=== PATIENT | female | born 1945 | race Caucasian/White ===

== ENCOUNTER 2017-05-02 20:47 | Inpatient (IN) | payer MEDICARE ==
[~2017-05-02] VITALS: Ht 154.9 cm; Wt 67.9 kg
[2017-05-02 20:50] VITALS: BP 144/84; PULSE 82; RESP 16; TEMP 97.7; O2SAT 100
[2017-05-02 21:04] LABS: BASOPHIL # 0.1 TH/MM3 (0-0.2); BASOPHIL % 0.9 % (0.0-2.0); EOSINOPHIL # 0.1 TH/MM3 (0-0.4); EOSINOPHIL % 1.5 % (0.0-4.0); HEMATOCRIT 42.2 % (35.0-46.0); HEMOGLOBIN 14.1 GM/DL (11.6-15.3); LYMPHOCYTE # 2.9 TH/MM3 (1.0-4.8); MEAN CELL VOLUME 84.3 FL (80.0-100.0); MEAN CORPUSCULAR HEMOGLOBIN 28.3 PG (27.0-34.0); MEAN CORPUSCULAR HGB CONC 33.5 % (32.0-36.0); MEAN PLATELET VOLUME 7.2 FL (7.0-11.0); MONOCYTE # 0.4 TH/MM3 (0-0.9); NEUT % 62.6 % (16.0-70.0); PLATELET COUNT 403 TH/MM3 (150-450); RED BLOOD COUNT 5.01 MIL/MM3 (4.00-5.30); RED CELL DISTRIBUTION WIDTH 12.5 % (11.6-17.2); WHITE BLOOD COUNT 9.5 TH/MM3 (4.0-11.0)
[2017-05-02 21:13] LABS: CHLORIDE 103 MEQ/L (98-107); SODIUM (NA) 142 MEQ/L (136-145)
[2017-05-02 21:16] LABS: CALCIUM 9.7 MG/DL (8.5-10.1)
[2017-05-02 21:17] LABS: ALBUMIN 3.8 GM/DL (3.4-5.0); BICARBONATE 24.5 MEQ/L (21.0-32.0); BLOOD UREA NITROGEN 10 MG/DL (7-18); GLUCOSE,RANDOM 220 MG/DL (74-106)
[2017-05-02 21:20] LABS: ALT (GPT) 27 U/L (10-53); AST (GOT) 20 U/L (15-37); CREATININE 0.77 MG/DL (0.50-1.00); GLOMERULAR FILTRATION RATE 74 ML/MIN (>89)
[2017-05-02 21:22] LABS: TOTAL BILIRUBIN ADULT 0.4 MG/DL (0.2-1.0); TOTAL PROTEIN 7.7 GM/DL (6.4-8.2)
[2017-05-02 21:23] LABS: ALKALINE PHOSPHATASE 80 U/L (45-117)
[2017-05-02 21:25] LABS: TROPONIN I LESS THAN 0.02 NG/ML (0.02-0.05)
--- NOTE | 2017-05-02 21:50 | RADRPT ---
EXAM DATE/TIME: 05/02/2017 21:25 [facility] COMPARISON: No previous studies available for comparison. INDICATIONS : Trauma. Fall. RADIATION DOSE: 56.19 CTDIvol (mGy) MEDICAL HISTORY : Hypertension. Diabetes mellitus type 2. SURGICAL HISTORY : None. ENCOUNTER: Initial ACUITY: 1 day PAIN SCALE: 0/10 LOCATION: cranial TECHNIQUE: Multiple contiguous axial images were obtained of the head. Using automated exposure control and adj ustment of the mA and/or kV according to patient size, radiation dose was kept as low as reasonably a chievable to obtain optimal diagnostic quality images. DICOM format image data is available electro nically for review and comparison. FINDINGS: There are scattered areas of high attenuation involving the subarachnoid space overlying right fronta l lobe, right parietal lobe, and left parietal lobe consistent with subarachnoid hemorrhage. Atrophy. Periventricular low attenuation change. Calcifications associated with the basal ganglia on the left . No acute infarction. Ventricles are prominent. No hydrocephaly. The calvarium is intact. CONCLUSION: 1. Acute subarachnoid hemorrhage bilaterally. 2. Atrophy. 3. Chronic small vessel ischemic change. Juanjose Harris Jr., MD on May 02, 2017 at 21:45 Board Certified Radiologist. This report was verified electronically.
[2017-05-02] MEDS ORDERED: ONDANSETRON HCL 4 MG/2 ML VIAL IV PUSH ONE (22:00)
--- NOTE | 2017-05-02 22:09 | RADRPT ---
EXAM DATE/TIME: 05/02/2017 21:25 [facility] COMPARISON: No previous studies available for comparison. INDICATIONS : Trauma. Fall. RADIATION DOSE: 26.43 CTDIvol (mGy) MEDICAL HISTORY : Hypertension. Diabetes mellitus type 2. SURGICAL HISTORY : None. ENCOUNTER: Initial ACUITY: 1 day PAIN SCALE: 0/10 LOCATION: neck TECHNIQUE: Volumetric scanning of the cervical spine was performed. Multiplanar reconstructions in the sagittal, coronal and oblique axial planes were performed. Using automated exposure control and adjustment o f the mA and/or kV according to patient size, radiation dose was kept as low as reasonably achievable to obtain optimal diagnostic quality images. DICOM format image data is available electronically f or review and comparison. FINDINGS: VERTEBRAE: Normal vertebral body height. ALIGNMENT: No evidence of subluxation. C2-C3: The bony spinal canal is normal in size. No evidence of disc bulge or herniation. The neural forami na are bilaterally patent. C3-C4: The bony spinal canal is normal in size. No evidence of disc bulge or herniation. The neural forami na are bilaterally patent. C4-C5: The bony spinal canal is normal in size. No evidence of disc bulge or herniation. The neural forami na are bilaterally patent. C5-C6: There is disc space narrowing with a mild broad-based disc osteophyte complex. Central canal remains patent. Bony uncovertebral hypertrophy generates bilateral moderate neural foraminal narrowing. C6-C7: The bony spinal canal is normal in size. No evidence of disc bulge or herniation. The neural forami na are bilaterally patent. C7-T1: The bony spinal canal is normal in size. No evidence of disc bulge or herniation. The neural forami na are bilaterally patent. CONCLUSION: 1. No fracture or dislocation. 2. Degenerative changes. Juanjose Harris Jr., MD on May 02, 2017 at 21:57 Board Certified Radiologist. This report was verified electronically.
--- NOTE | 2017-05-02 22:09 | PD ---
HPI Chief Complaint: Syncope/Near-Syncope Time Seen by Provider: 20:51 Travel History International Travel<30 days: No Contact w/Intl Traveler<30days: No Traveled to known affect area: No History of Present Illness HPI patient is a 72-year-old female who was attending a wedding today had moderate amount to drink, according to her she be complaining of some nausea and then went up to go to the bathroom, she apparently either had a syncopal event or a trip and fall and landed on her face. The patient's inability altered on arrival can tell me her name but repeats "I don't know" fairly frequently. When asked for her date of she is unable to give me her date of . Patient is not on any blood thinners, does have a history of diabetes and her blood sugar was 200 in the field. Significant confused for EMS and bystanders she is placed in full spinal package and brought to the emergency department. History fairly limited by the patient's altered mental status. PFSH Past Medical History Diabetes: Yes Patient Takes Glucophage: Yes Hypertension: Yes Tetanus Vaccination: Unknown ?: Not Social History Alcohol Use: Yes Tobacco Use: No Substance Use: No Allergies-Medications (Allergen,Severity, Reaction): Coded Allergies: No Known Allergies (Unverified , 05/02/17) Reported Meds & Prescriptions Reported Meds & Active Scripts Active Reported Pravastatin 10 Mg Tab 10 Mg PO DAILY Lisinopril 10 Mg Tab 10 Mg PO DAILY Metformin (Metformin HCl) 500 Mg Tab 500 Mg PO BIDPC Review of Systems ROS Limitations: Altered Mental Status Physical Exam Narrative GENERAL: Well-developed well-nourished, there is contusion and mild periorbital edema on the right. Patient fairly confused. SKIN: Focused skin assessment warm/dry. HEAD: No ramirez signs, there is contusion and periorbital edema on the right.. Normocephalic. EYES: Pupils equal and round. No scleral icterus. No injection or drainage. ENT: No nasal bleeding or discharge. Mucous membranes pink and moist. NECK: Trachea midline. No JVD. CARDIOVASCULAR: Regular rate and rhythm. No murmur appreciated. RESPIRATORY: No accessory muscle use. Clear to auscultation. Breath sounds equal bilaterally. GASTROINTESTINAL: Abdomen soft, non-tender, nondistended. Hepatic and splenic margins not palpable. MUSCULOSKELETAL: No obvious deformities. No clubbing. No cyanosis. No edema. Extremities appear atraumatic, no midline CT or L-spine tenderness. No bruising on her posterior. NEUROLOGICAL: Awake and alert confused oriented to self only. GCS of 14. Able to follow commands in all 4 extremities, 5 out of 5 strength in all 4 extremity' s. Cranial nerves II through XII are grossly intact and nonfocal, extra ocular movements intact, pupils PERRLA. PSYCHIATRIC: Unable to assess secondary to altered mental status Data Data Last Documented VS Vital Signs Date Time Temp Pulse Resp B/P (MAP) Pulse Ox O2 Delivery O2 Flow Rate FiO2 05/02/17 22:13 96 16 156/85 (108) 100 Room Air 05/02/17 20:50 97.7 Orders Orders Electrocardiogram (05/02/17 20:51) Complete Blood Count With Diff (05/02/17 20:51) Comprehensive Metabolic Panel (05/02/17 20:51) Prothrombin Time / Inr (Pt) (05/02/17 20:51) Act Partial Throm Time (Ptt) (05/02/17 20:51) Troponin I (05/02/17 20:51) Blood Glucose (05/02/17 20:51) Ecg Monitoring (05/02/17 20:51) Iv Access Insert/Monitor (05/02/17 20:51) Oximetry (05/02/17 20:51) Alcohol (Ethanol) (05/02/17 20:51) Ct Brain W/O Iv Contrast(Rout) (05/02/17 ) Ct Cerv Spine W/O Contrast (05/02/17 ) Ct Facial Bones W/O Iv Cont (05/02/17 ) Ondansetron Inj (Zofran Inj) (05/02/17 22:00) Elevate Head Of Bed (05/02/17 21:48) Activity Bed Rest (05/02/17 22:03) Consult Neurosurgery (05/02/17 ) Admit Order (Ed Use Only) (05/02/17 ) Potassium Chlor 10 Meq Premix (Kcl 10 Me (05/02/17 22:45) Labs Laboratory Tests Test 05/02/17 21:00 White Blood Count 9.5 TH/MM3 Red Blood Count 5.01 MIL/MM3 Hemoglobin 14.1 GM/DL Hematocrit 42.2 % Mean Corpuscular Volume 84.3 FL Mean Corpuscular Hemoglobin 28.3 PG Mean Corpuscular Hemoglobin Concent 33.5 % Red Cell Distribution Width 12.5 % Platelet Count 403 TH/MM3 Mean Platelet Volume 7.2 FL Neutrophils (%) (Auto) 62.6 % Lymphocytes (%) (Auto) 31.0 % Monocytes (%) (Auto) 4.0 % Eosinophils (%) (Auto) 1.5 % Basophils (%) (Auto) 0.9 % Neutrophils # (Auto) 6.0 TH/MM3 Lymphocytes # (Auto) 2.9 TH/MM3 Monocytes # (Auto) 0.4 TH/MM3 Eosinophils # (Auto) 0.1 TH/MM3 Basophils # (Auto) 0.1 TH/MM3 CBC Comment DIFF FINAL Differential Comment Prothrombin Time 10.0 SEC Prothromb Time International Ratio 1.0 RATIO Activated Partial Thromboplast Time 18.6 SEC Blood Urea Nitrogen 10 MG/DL Creatinine 0.77 MG/DL Random Glucose 220 MG/DL Total Protein 7.7 GM/DL Albumin 3.8 GM/DL Calcium Level 9.7 MG/DL Alkaline Phosphatase 80 U/L Aspartate Amino Transf (AST/SGOT) 20 U/L Alanine Aminotransferase (ALT/SGPT) 27 U/L Total Bilirubin 0.4 MG/DL Sodium Level 142 MEQ/L Potassium Level 3.4 MEQ/L Chloride Level 103 MEQ/L Carbon Dioxide Level 24.5 MEQ/L Anion Gap 15 MEQ/L Estimat Glomerular Filtration Rate 74 ML/MIN Troponin I LESS THAN 0.02 NG/ML Ethyl Alcohol Level 29 MG/DL MDM Medical Decision Making Medical Screen Exam Complete: Yes Emergency Medical Condition: Yes Differential Diagnosis Concussion, intoxication, intracranial hemorrhage, skull fracture, neck fracture , facial fracture. Narrative Course Patient roomed emergency department, taken hastily do CAT scan which showed bilateral small subarachnoid hemorrhages. Mental status slowly improving in emerged permit, blood pressure 140s over 80s. She is not on it and quite plans. She was discussed with Dr. Pb Gifford, no further recommendations except for elevated head of bed at this time. Will be transferred to the main [facility] for intensive surgical ICU care. Patient's at the bedside was updated, he is also asked me to update patient's daughter by phone who formally was a nurse at [facility]. 's unclear whether this patient had subarachnoid hemorrhage prior to fall or excuse because by the fall. This may be a coup contrecoup injury. Critical Care Narrative Aggregate critical care time was 35 minutes. Time to perform other separately billable procedures was not included in the critical care time. My time did not include minutes spent treating any other patients simultaneously or on activities that did not directly contribute to the patient's treatment. The services I provided to this patient were to treat and/or prevent clinically significant deterioration that could result in: , disability, organ failure I provided critical care services requiring my management, as noted below: Chart data review, documentation time, medication orders and management, vital sign assessments/reviewing monitor data, ordering and reviewing lab tests, ordering and interpreting/reviewing x-rays and diagnostic studies, care of the patient and discussion of the patient with the admitting physicians. Diagnosis Primary Impression: Subarachnoid hemorrhage Additional Impression: Syncope and collapse Admitting Information Admitting Physician Requests: Admit Condition: Serious Nahum Wall MD May 02, 2017 22:09
--- NOTE | 2017-05-02 22:12 | RADRPT ---
EXAM DATE/TIME: 05/02/2017 21:25 [facility] COMPARISON: No previous studies available for comparison. INDICATIONS : Trauma. Fall. RADIATION DOSE: 25.33 CTDIvol (mGy) MEDICAL HISTORY : Hypertension. Diabetes mellitus type 2. SURGICAL HISTORY : None. ENCOUNTER: Initial ACUITY: 1 day PAIN SCORE: 0/10 LOCATION: facial TECHNIQUE: Volumetric scanning of the facial bones was performed. Using automated exposure control and adjustme nt of the mA and/or kV according to patient size, radiation dose was kept as low as reasonably achiev able to obtain optimal diagnostic quality images. DICOM format image data is available [employer] y for review and comparison. FINDINGS: There is an acute nondisplaced fracture involving the right nasion. Soft tissue swelling overlies the right maxilla. The acute fracture is also seen involving the floor of the right orbit. No entrapment of the inferior rectus muscle observed. A small amount of fluid seen within the right maxillary sinu s. The orbital rim is intact. Remaining bony structures are unremarkable. Nasal septum within the mid line. CONCLUSION: 1. Acute right nasal bone fracture and right orbital floor fracture without entrapment of the inferio r rectus muscle. Juanjose Harris Jr., MD on May 02, 2017 at 22:06 Board Certified Radiologist. This report was verified electronically.
[2017-05-02 22:13] VITALS: BP 156/85; PULSE 96; RESP 16; O2SAT 100
[2017-05-02] MEDS ORDERED: METF500T PO (22:55)
[2017-05-02 23:05] VITALS: BP 142/76; PULSE 92; RESP 16; O2SAT 99
[2017-05-02] MEDS: POTASSIUM CHLOR 10 MEQ PREMIX 100 ML IV SCH (23:33)
[2017-05-02] MEDS ORDERED: PRAV10TA PO (23:40)
[2017-05-02] MEDS ORDERED: LISI10TA3 PO (23:40)
[2017-05-02 23:42] VITALS: BP 145/72; PULSE 97; RESP 16; O2SAT 100
[2017-05-03] VITALS (14 sets, daily range): BP systolic 128–158; BP diastolic 60–80; PULSE 68–105; RESP 16–26; TEMP 97.9–99.3; O2SAT 95–100
[2017-05-03] MEDS: POTASSIUM CHLOR 10 MEQ PREMIX 100 ML IV SCH (01:06)
[2017-05-03] MEDS: LABETALOL HCL 100 MG/20 ML VIAL IV PUSH PRN (01:10)
[2017-05-03] MEDS ORDERED: RESP: ALBUTEROL 2.5 MG/3 ML NEB (PRN) INH (02:45)
[2017-05-03] MEDS ORDERED: MAGNESIUM HYDROXIDE SUSP 30 ML CUP PO PRN (02:45)
[2017-05-03] MEDS ORDERED: SENNOSIDES 8.6 MG TAB PO PRN (02:45)
[2017-05-03] MEDS ORDERED: CHLORHEXIDINE GLUCONATE 2 % 1 PACK (2 CLOTHS) TOP PRN (02:45)
[2017-05-03] MEDS ORDERED: LACTULOSE SYRUP 20 GM/30 ML CUP PO PRN (02:45)
[2017-05-03] MEDS ORDERED: ONDANSETRON HCL 4 MG/2 ML VIAL IV PUSH PRN (02:45)
[2017-05-03] MEDS ORDERED: SODIUM CHLORIDE 0.9% FLUSH 10 ML FLUSH IV FLUSH PRN (02:45)
[2017-05-03] MEDS ORDERED: MISCELLANEOUS NURSING INFORMATION XX SCH (02:45)
[2017-05-03] MEDS ORDERED: BISACODYL 10 MG SUPP RECTAL PRN (02:45)
--- NOTE | 2017-05-03 03:07 | HHI.HP ---
HPI Service Critical Care Medicine Primary Care Physician Amy Roca MD Admission Diagnosis Subarachnoid hemorrhage, Syncope Diagnosis: Travel History International Travel<30 Days: No Contact w/Intl Traveler <30 Da: No Traveled to Known Affected Are: No History of Present Illness 72-year-old female with past medical history of hypertension, diabetes, hyperlipidemia, obesity who presents to [facility] emergency department after LOC. She states she had attended a wedding and had eaten and drank one alcoholic beverage. She became very nauseous and her assisted her to going to the bathroom. She then had a syncopal event. She states she struck her face on the floor. She denies chest pain, shortness of breath, palpitations, diaphoresis, headache, neck pain, loss of bowel or bladder function, tongue biting. There was no seizure activity noted. She denies prior history of syncope. She denies prior cardiac history and states she has never had a cardiac workup in the past. No family history of sudden cardiac . CT brain demonstrates scattered subarachnoid hemorrhage, bifrontal and biparietal. She states that she has some tenderness around her right eye where she has periorbital ecchymoses but otherwise denies any pain or symptoms. Denies diplopia or visual changes. CT C-spine was also performed and was negative for acute fracture/subluxation. CT maxillofacial shows fracture of nasal bone and the floor of the right orbital floor without radiographic (or clinical) evidence of entrapment. She has not been on antiplatelet or anticoagulant. Review of Systems Constitutional: DENIES: Diaphoretic episodes, Fever Cardiovascular: DENIES: Chest pain Gastrointestinal: DENIES: Abdominal pain Neurologic: DENIES: Headache, Seizures, Speech Problems, Poor Balance Psychiatric: DENIES: Confusion Past Family Social History Allergies: Coded Allergies: No Known Allergies (Unverified , 05/02/17) Past Medical History She has a fine needle aspirate of a breast lesion with malignant cells. She underwent lumpectomy that reportedly had benign pathology. She had no radiation or chemotherapy Diabetes Hypertension Hyperlipidemia Past Surgical History Breast lumpectomy Reported Medications Pravastatin 10 mg by mouth daily Lisinopril 10 g by mouth daily Metformin 500 mg by mouth twice a day Family History No family history of sudden cardiac , coronary artery disease, cerebral aneurysm Father at the [facility] in his early 60s Mother at age 89 from sepsis. Social History Lifetime nonsmoker Occasionally drinks alcohol socially No drug use Lives in [facility] Physical Exam Vital Signs Vital Signs Date Time Temp Pulse Resp B/P (MAP) Pulse Ox O2 Delivery O2 Flow Rate FiO2 05/03/17 00:20 99.2 105 19 143/77 (99) 98 05/03/17 00:00 105 05/02/17 23:56 05/02/17 23:42 97 16 145/72 (96) 100 Room Air 05/02/17 23:05 92 16 142/76 (98) 99 Room Air 05/02/17 22:13 96 16 156/85 (108) 100 Room Air 05/02/17 21:00 16 100 05/02/17 20:50 97.7 82 16 144/84 (104) 100 Physical Exam GENERAL: Well-nourished, well-developed patient who is laying in ISC bed. SKIN: Warm and dry. Right periorbital ecchymosis with tenderness HEAD: Normocephalic. EYES: Pupils equal and round, 3 mm reactive to 2 mm bilaterally.. No scleral icterus. Mild right conjunctival injection. Extraocular movements are full including upward gaze with no evidence of inferior rectus entrapment. ENT: No nasal bleeding or discharge. Mucous membranes pink and moist. NECK: Trachea midline. No JVD. CARDIOVASCULAR: Regular rate and rhythm. 2/6 systolic murmur LLSB RESPIRATORY: No accessory muscle use. Clear to auscultation. Breath sounds equal bilaterally. On RA. GASTROINTESTINAL: Abdomen soft, non-tender, nondistended. Bowel sounds present. MUSCULOSKELETAL: Extremities without clubbing, cyanosis, or edema. No obvious deformities. NEUROLOGICAL: Awake and alert. No obvious cranial nerve deficits. Pupils reactive. Extra ocular movements intact. No pronator drift. Five out of 5 muscle strength in the arms and legs. Normal speech. Sensation intact. Laboratory Laboratory Tests Test 05/02/17 21:00 05/03/17 01:00 White Blood Count 9.5 Red Blood Count 5.01 Hemoglobin 14.1 Hematocrit 42.2 Mean Corpuscular Volume 84.3 Mean Corpuscular Hemoglobin 28.3 Mean Corpuscular Hemoglobin Concent 33.5 Red Cell Distribution Width 12.5 Platelet Count 403 Mean Platelet Volume 7.2 Neutrophils (%) (Auto) 62.6 Lymphocytes (%) (Auto) 31.0 Monocytes (%) (Auto) 4.0 Eosinophils (%) (Auto) 1.5 Basophils (%) (Auto) 0.9 Neutrophils # (Auto) 6.0 Lymphocytes # (Auto) 2.9 Monocytes # (Auto) 0.4 Eosinophils # (Auto) 0.1 Basophils # (Auto) 0.1 CBC Comment DIFF FINAL Differential Comment Prothrombin Time 10.0 Prothromb Time International Ratio 1.0 Activated Partial Thromboplast Time 18.6 Blood Urea Nitrogen 10 Creatinine 0.77 Random Glucose 220 Total Protein 7.7 Albumin 3.8 Calcium Level 9.7 Alkaline Phosphatase 80 Aspartate Amino Transf (AST/SGOT) 20 Alanine Aminotransferase (ALT/SGPT) 27 Total Bilirubin 0.4 Sodium Level 142 Potassium Level 3.4 Chloride Level 103 Carbon Dioxide Level 24.5 Anion Gap 15 Estimat Glomerular Filtration Rate 74 Troponin I LESS THAN 0.02 Ethyl Alcohol Level 29 Result Diagram: 05/02/17209905/02/172099 [place] VTE Risk Assessment [place] VTE Risk Assessment: Mod/High Risk (score >= 2) VTE Pharm Contraindication: Intracranial lesions Caprini Risk Assessment Model Point Value = 1 Point Value = 2 Point Value = 3 Point Value = 5 Age 41-60 Minor surgery BMI > 25 kg/m2 Swollen legs Varicose veins or History of unexplained or recurrent spontaneous Oral contraceptives or hormone replacement Sepsis (< 1 month) Serious lung disease, including pneumonia (< 1 month) Abnormal pulmonary function Acute myocardial infarction Congestive heart failure (< 1 month) History of inflammatory bowel disease Medical patient at bed rest Age 61-74 Arthroscopic surgery Major open surgery (> 45 min) Laparoscopic surgery (> 45 min) Malignancy Confined to bed (> 72 hours) Immobilizing plaster cast Central venous access Age >= 75 History of VTE Family history of VTE Factor V Leiden Prothrombin [id number] Lupus anticoagulant Anticardiolipin antibodies Elevated serum homocysteine Heparin-induced thrombocytopenia Other congenital or acquired thrombophilia Stroke (< 1 month) Elective arthroplasty Hip, pelvis, or leg fracture Acute spinal cord injury (< 1 month) Prophylaxis Regimen Total Risk Factor Score Risk Level Prophylaxis Regimen 0-1 Low Early ambulation 2 Moderate Order ONE of the following: *Sequential Compression Device (SCD) *Heparin 5000 units SQ BID 3-4 Higher Order ONE of the following medications: *Heparin 5000 units SQ TID *Enoxaparin/Lovenox 40 mg SQ daily (WT < 150 kg, CrCl > 30 mL/min) *Enoxaparin/Lovenox 30 mg SQ daily (WT < 150 kg, CrCl > 10-29 mL/min) *Enoxaparin/Lovenox 30 mg SQ BID (WT < 150 kg, CrCl > 30 mL/min) AND/OR *Sequential Compression Device (SCD) 5 or more Highest Order ONE of the following medications: *Heparin 5000 units SQ TID (Preferred with Epidurals) *Enoxaparin/Lovenox 40 mg SQ daily (WT < 150 kg, CrCl > 30 mL/min) *Enoxaparin/Lovenox 30 mg SQ daily (WT < 150 kg, CrCl > 10-29 mL/min) *Enoxaparin/Lovenox 30 mg SQ BID (WT < 150 kg, CrCl > 30 mL/min) AND *Sequential Compression Device (SCD) Assessment and Plan Problem List: (1) Syncope and collapse ICD Code: R55 - Syncope and collapse Status: Acute (2) Subarachnoid hemorrhage ICD Code: I60.9 - Nontraumatic subarachnoid hemorrhage, unspecified Status: Acute Assessment and Plan NEURO: Syncope Subarachnoid hemorrhage, bifrontal and biparietal. ED physician discussed with Dr. Gifford. Further imaging per NSG. Neurocheck in [facility]. EtOH mildly elevated at 29. f/u drug screen. Monitor for signs of seizure. Tylenol prn mild pain Lortab prn pain OPHTHO/MAXILLOFACIAL Nasal fracture R inferior orbit fx - No evidence of entrapment. Ophtho followup outpatient. Keflex as per below. RESP: IS every hour awake CV: Hypertension Hyperlipidemia Continue lisinopril 10 mg by mouth daily Continue pravastatin 10 mg by mouth (MAR said daily but pt actually takes 3x/ week so written for qod). Check lipids Syncope Initial EKG without high risk features - sinus rhythm rate 93, normal qrs 75 mm , QtC nl, no st deviation. Monitor telemetry. Serial EKG and troponin. Obtain 2D Echo. Labetalol prn SBP >140. GI: Heart healthy 1800-calorie ADA diet FEN/RENAL: Hypokalemia Potassium chloride 20 mEq IV now Monitor BMP. Check magnesium and phos now ID: No leukocytosis or fever. Monitor for signs and symptoms of infection. Keflex 250 po q6 for orbit fx. HEME: Hemoglobin normal. No reported GI bleeding symptoms. Follow-up CBC tomorrow. ENDO: Diabetes mellitus Hold metformin. Insulin low dose sliding scale ac/hs Check TSH PROPH: SCDs for DVT prophylaxis. Pharmacologic DVT prophylaxis contraindicated in setting of subarachnoid hemorrhage. Famotidine for stress ulcer prophylaxis. ACCESS: PIV providing adequate access. Level 2 H and P Vane Millard MD May 03, 2017 03:07
[2017-05-03] MEDS ORDERED: POTASSIUM PHOSPHATE MONOBASIC 500 MG TAB PO/TUBE PRN (03:15)
[2017-05-03] MEDS ORDERED: POTASSIUM PHOSPHATE INJ 30 MMOL in SODIUM CHLOR 0.9% 250 ML INJ 250 ML IV PRN (03:15)
[2017-05-03] MEDS ORDERED: POTASSIUM PHOSPHATE MONOBASIC 500 MG TAB PO PRN (03:15)
[2017-05-03] MEDS ORDERED: POTASSIUM CHLORIDE 25 MEQ EFFERVESCENT TAB PO PRN (03:15)
[2017-05-03] MEDS ORDERED: MAGNESIUM SULFATE INJ 4 GM in SODIUM CHLORIDE 0.9% INJ 92 ML IV PRN (03:15)
[2017-05-03] MEDS ORDERED: DEXTROSE 50% IN WATER 50 ML VIAL(D50) IV PUSH PRN (03:15)
[2017-05-03] MEDS ORDERED: GLUCAGON 1 MG/ML VIAL OTHER PRN (03:15)
[2017-05-03] MEDS ORDERED: MAGNESIUM SULFATE INJ 2 GM in SODIUM CHLORIDE 0.9% INJ 96 ML IV PRN (03:15)
[2017-05-03] MEDS ORDERED: POTASSIUM CHLOR 20 MEQ PREMIX 100 ML IV PRN ×2 (03:15)
[2017-05-03] MEDS ORDERED: MAGNESIUM OXIDE 400 MG TAB PO PRN (03:15)
[2017-05-03] MEDS ORDERED: POTASSIUM CHLOR 40 MEQ PREMIX 100 ML IV PRN ×2 (03:15)
[2017-05-03] MEDS ORDERED: SODIUM PHOSPHATE INJ 30 MMOL in SODIUM CHLOR 0.9% 250 ML INJ 240 ML IV PRN (03:15)
[2017-05-03] MEDS: CHLORHEXIDINE GLUCONATE 2 % 1 PACK (2 CLOTHS) TOP SCH ×2 (03:42→19:29)
[2017-05-03] MEDS: NS + KCL 20 MEQ INJ 1,000 ML IV SCH ×2 (03:55→17:28)
[2017-05-03] MEDS: INSULIN ASPART SUPPLEMENTAL SCALE SQ SCH ×4 (08:00→21:52)
[2017-05-03] MEDS ORDERED: ACETAMINOPHEN/HYDROcodone 325 MG/5 MG TAB PO PRN (08:15)
[2017-05-03] MEDS: DOCUSATE SODIUM 50 MG/SENNA 8.6 MG TAB PO SCH ×2 (08:45→21:51)
[2017-05-03 08:46] LABS: MAGNESIUM 1.7 MG/DL (1.5-2.5)
[2017-05-03] MEDS: LISINOPRIL 10 MG TAB PO SCH (08:46)
[2017-05-03] MEDS: ACETAMINOPHEN 325 MG TAB PO PRN ×3 (08:46→21:51)
[2017-05-03] MEDS: FAMOTIDINE 20 MG TAB PO SCH ×2 (08:46→21:51)
[2017-05-03] MEDS: SODIUM CHLORIDE 0.9% FLUSH 10 ML FLUSH IV FLUSH SCH ×2 (08:46→21:51)
[2017-05-03] MEDS ORDERED: FAMOTIDINE 20 MG/2 ML VIAL IV PUSH SCH (09:00)
[2017-05-03] MEDS ORDERED: PRAVASTATIN SOD 10 MG TAB PO SCH (09:00)
[2017-05-03 10:51] LABS: CHOLESTEROL 182 MG/DL (120-200); LIPASE 88 U/L (73-393); MAGNESIUM 1.8 MG/DL (1.5-2.5); PHOSPHORUS 3.1 MG/DL (2.5-4.9); TRIGLYCERIDES 82 MG/DL (42-150)
[2017-05-03 11:59] LABS: HDL CHOLESTEROL 67.2 MG/DL (40.0-60.0); LDL CHOLESTEROL 98 MG/DL (0-99); TROPONIN I LESS THAN 0.02 NG/ML (0.02-0.05)
[2017-05-03] MEDS: CEPHALEXIN MONOHYDRATE 250 MG CAP PO SCH ×3 (12:12→23:54)
--- NOTE | 2017-05-03 14:43 | EKG ---
Date Performed: 05/03/2017 Time Performed: 09:49:05 PTAGE: 72 years EKG: Sinus rhythm VOLTAGE CRITERIA FOR LVH NONSPECIFIC T-WAVE ABNORMALITY ABNORMAL ECG Since PREVIOUS TRACING , no significant change noted PREVIOUS TRACIN05/02/2017 21.24 DOCTOR: Melissa Cabrera Interpretating Date/Time 05/03/2017 14:42:55
--- NOTE | 2017-05-03 14:43 | EKG ---
Date Performed: 05/02/2017 Time Performed: 21:24:15 PTAGE: 72 years EKG: Sinus rhythm BORDERLINE LEFT AXIS DEVIATION LOW QRS VOLTAGE IN PRECORDIAL LEADS POSSIBLE RIGHT VENTRICULAR CONDUC TION DELAY MINIMAL VOLTAGE CRITERIA FOR LVH, CONSIDER NORMAL VARIANT BORDERLINE ECG NO PREVIOUS TRACING DOCTOR: Melissa Cabrera Interpretating Date/Time 05/03/2017 14:43:08
[2017-05-03] MEDS ORDERED: ENALAPRILAT 1.25 MG/ML VIAL IV PUSH PRN (15:15)
[2017-05-03] MEDS ORDERED: LABETALOL HCL 100 MG/20 ML VIAL IV PUSH PRN (15:15)
--- NOTE | 2017-05-03 15:30 | HHI.CCPN ---
Subjective Remarks/Hospital Course 72-year-old female with past medical history of hypertension, diabetes, hyperlipidemia, obesity who presents to [facility] emergency department after LOC. She states she had attended a wedding and had eaten and drank one alcoholic beverage. She became very nauseous and her assisted her to going to the bathroom. She then had a syncopal event. She states she struck her face on the floor. She denies chest pain, shortness of breath, palpitations, diaphoresis, headache, neck pain, loss of bowel or bladder function, tongue biting. There was no seizure activity noted. She denies prior history of syncope. She denies prior cardiac history and states she has never had a cardiac workup in the past. No family history of sudden cardiac . CT brain demonstrates scattered subarachnoid hemorrhage, bifrontal and biparietal. She states that she has some tenderness around her right eye where she has periorbital ecchymoses but otherwise denies any pain or symptoms. Denies diplopia or visual changes. CT C-spine was also performed and was negative for acute fracture/subluxation. CT maxillofacial shows fracture of nasal bone and the floor of the right orbital floor without radiographic (or clinical) evidence of entrapment. She has not been on antiplatelet or anticoagulant. Subjective 05/03: Reevaluated this afternoon. Remains on room air and clinically stable.. On room air. On ADA diet. Objective Vital Signs Date Time Temp Pulse Resp B/P (MAP) Pulse Ox O2 Delivery O2 Flow Rate FiO2 05/03/17 10:00 85 05/03/17 08:00 98.9 26 158/80 (106) 100 05/03/17 07:00 Room Air Intake and Output 05/03/17 05/03/17 05/04/17 08:00 16:00 00:00 Intake Total 170 ml Balance 170 ml Result Diagram: 05/02/17 2100 05/02/17 2100 Imaging Last Impressions Maxillofacial CT 05/02/17 0000 Signed Impressions: Service Date/Time: Tuesday, May 02, 2017 21:25 - CONCLUSION: 1. Acute right nasal bone fracture and right orbital floor fracture without entrapment of the inferior rectus muscle. Juanjose Harris Jr., MD Head CT 05/02/17 0000 Signed Impressions: Service Date/Time: Tuesday, May 02, 2017 21:25 - CONCLUSION: 1. Acute subarachnoid hemorrhage bilaterally. 2. Atrophy. 3. Chronic small vessel ischemic change. Juanjose Harris Jr., MD Cervical Spine CT 05/02/17 0000 Signed Impressions: Service Date/Time: Tuesday, May 02, 2017 21:25 - CONCLUSION: 1. No fracture or dislocation. 2. Degenerative changes. Juanjose Harris Jr., MD Objective Remarks GENERAL: 72-year-old female resting in bed in no acute distress SKIN: Warm and dry. Right periorbital ecchymosis without crepitus HEAD: Normocephalic. EYES: Pupils equal and round, 3 mm reactive to 2 mm bilaterally.. No scleral icterus. Mild right conjunctival injection. Extraocular movements are full including upward gaze with no evidence of inferior rectus entrapment. ENT: No nasal bleeding or discharge. Mucous membranes pink and moist. Oropharynx without erythema NECK: Trachea midline. No JVD. CARDIOVASCULAR: RRR. S1, S2 no S4.. 2/6 systolic murmur LLSB RESPIRATORY: No acute auscultation without wheezes rales or rhonchi GASTROINTESTINAL: Abdomen soft, non-tender, nondistended. Bowel sounds present. MUSCULOSKELETAL: Extremities without noted in peripheral edema. No obvious deformities. NEUROLOGICAL: Awake and alert. No obvious cranial nerve deficits. Pupils reactive as above. Extra ocular movements intact. No pronator drift. Five out of 5 muscle strength in the arms and legs. Normal speech. Sensation intact. Gait was not assessed. Urinary Catheter: No Assessment to: Continue Vascular Central Line Catheter: No Assessment to: Continue A/P Assessment and Plan NEURO/PSYCH: Syncope Right frontal/parietal and left parietal subarachnoid hemorrhage - traumatic EtOH use Right nondisplaced Nasal fracture R inferior orbit for fx - No evidence of entrapment. Involving the inferior rectus muscle Dr. Gifford/neurosurgery following. Plan for repeat CT brain in a.m. 05/04 Neurocheck in [facility]. EtOH - 29. UDS (-) Monitor for signs of seizure. Acetaminophen 650 mg by mouth every 4 hours when necessary pain 1-3 Hydrocodone/acetaminophen 5/325 one tablet every 4 hours when necessary pain 4 through 10 Prophylactically start on thiamine 100 mg daily, folate 1 mg daily and multivitamin 1 tablet daily Ophtho followup outpatient. Monitor for diplopia/exophthalmos Antibiotics as below. No indications for steroids at this time No indication for seizure prophylaxis RESP: Nasal cannula if needed to maintain saturations greater than equal to 92% Incentive spirometry while awake As needed albuterol every 2 hours. Dyspnea No chest x-ray done during this hospitalization. Not currently indicate CV: History of Hypertension History of Hyperlipidemia/high HDL Syncope episode Continue lisinopril 10 mg by mouth daily/home medication As needed enalapril 1.25 mg every 6 hours as needed and labetalol 10 mill grams IV 1 hour as needed maintain systolic blood pressure less than 150. Ideally less than 140 Continue pravastatin 10 mg by mouth (MAR said daily but pt actually takes 3x/ week so written for qod). HDL elevated at 67. Otherwise within normal limits. Admission EKG normal sinus rhythm rate 93, normal qrs 75 mm, QtC nl, no st deviation. Monitor telemetry. Troponin negative 3 Completed 2-D echo results pending GI: Heart healthy 1800-calorie ADA diet Famotidine 20 mg by mouth twice a day for GI prophylaxis Docusate sodium/senna 1 tablet twice a day for bowel regimen FEN/RENAL: Hypokalemia Replace as clinically indicated. Monitor BMP. Currently normal saline with KCl at 70 cc an hour ID: No leukocytosis or fever. Monitor for signs and symptoms of infection. Cephalexin 250 milligrams po q6 for right orbital floor wall fracture HEME: Hemoglobin normal. No reported GI bleeding symptoms. Follow-up CBC tomorrow. ENDO: Diabetes mellitus Hold metformin 500 mg twice a day/home medication. Novulog Insulin low dose sliding scale ac/hs 0.96 - TSH PROPH: SCDs for DVT prophylaxis. Pharmacologic DVT prophylaxis contraindicated in setting of subarachnoid hemorrhage. Famotidine for stress ulcer prophylaxis. ACCESS: PIV providing adequate access. No additional critical care time spent Eder Puentes MD May 03, 2017 15:30
[2017-05-03] MEDS: MAGNESIUM SULFATE 1 GM PREMIX 100 ML IV SCH ×2 (16:11→17:27)
--- NOTE | 2017-05-03 18:55 | MB ---
cc: JACQUELINE NOEL MD, ROHIT K. M.D. DATE OF CONSULTATION: 05/03/2017 REASON FOR CONSULTATION: Traumatic brain injury. HISTORY OF PRESENT ILLNESS: The patient is a 72 year-old female who presented to [facility] emergency room after a syncopal episode, struck her head with positive loss of consciousness. She was found to have a bihemispheric frontoparietal area convexity, traumatic subarachnoid hemorrhage along with basal ganglia calcifications left more than right. No mass effect or midline shift was noted. Initially she had complaints of headache and nausea but these have resolved overnight. She was transferred to [facility] this morning for further management. She denies any neck or back pain, numbness or paresthesias. She relates that she was in a wedding last evening and had a few glasses of wine and subsequently another alcoholic beverage, and was outside the bathroom at a restaurant when she passed out, fell and struck her head. At this point she denies any dizziness, lightheadedness and has ambulated a few steps with the physical therapist. She relates that the nausea has resolved. She has a mild headache. No numbness or paresthesias in the upper or lower extremities. CT of the cervical spine does not reveal any fractures. She does have orbital floor and nasal bone fracture, nondisplaced. PAST MEDICAL HISTORY 1. Non-insulin dependent diabetes mellitus. 2. Hypertension. 3. Hyperlipidemia. 4. Breast lumpectomy. MEDICATIONS: 1. Lisinopril 10 mg daily. 2. Metformin 500 milligrams b.i.d. 3. Pravastatin 10 mg daily. ALLERGIES: NO KNOWN DRUG ALLERGIES. SOCIAL HISTORY She is . Her and daughter are here with her. The patient drinks alcohol on a social basis. Denies tobacco use or smoking. FAMILY HISTORY: Unremarkable for any cardiac history of cerebrovascular accident. REVIEW OF SYSTEMS Pertinent positives include mild headache. Initially she had nausea which has resolved, had some swelling and limitation from the right periorbital and facial swelling but this is also improving. No other complaints. The rest of the review of systems is negative. LABORATORY STUDIES: White blood cell count 9.5, hemoglobin 14.1, platelet count 403, PT 10, INR 1.0, PTT 18.6, sodium 142, potassium 3.4, BUN 10, creatinine 0.77, glucose 220. Toxicology screen with alcohol level of 29. PHYSICAL EXAMINATION: Vitals: Temperature 97.9, pulse is 81, respiratory rate 19, blood pressure 135/77, oxygen saturation 97% on room air. Head: She has right periorbital ecchymosis, has mild swelling. Negative Krishna's sign. Neck: No guarding or rigidity, no lymphadenopathy. Midline trachea. Chest: Clear to auscultation bilaterally. Heart: Regular rate and rhythm. Normal S1-S2. Abdomen: Soft, nontender. No hepatosplenomegaly. Extremities: No clubbing, cyanosis or edema, or deformity. Skin: There is a right periorbital swelling and ecchymosis but no other areas of breakdown or rashes. General: She is an elderly female eating lunch in no acute distress. Neurologic: She is awake, alert. She is oriented x3. Pupils equal, reactive. Extra muscles are intact. Face is symmetric, tongue is midline. She moves her upper and lower extremities with 5/5 strength. Negative Babinski. Light touch sensation intact. Speech is fluent. IMPRESSION 1. 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 2. Syncopal episode. 3. Kza-[id number]-[id number] diabetes mellitus. 4. Hypertension which is well regulated. PLAN The patient will be monitored closely in the surgical intensive care unit for q1 hour neuro checks. Her diet and activity status will be increased as tolerated with physical therapy evaluation. Followup CT scan of the head will be obtained tomorrow morning to rule out progression of small areas or hemorrhages. 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 Discussed the findings with the patient and updated her and daughter at the bedside. MD LUCAS Sharif/JUSTO /5:25 PM /6:24 PM
--- NOTE | 2017-05-03 20:13 | ECHRPT ---
Indication: SYNCOPE CONCLUSIONS The left ventricular systolic function is normal with an estimated ejection fraction in the range of 60-65%. Normal left ventricular size. Mild concentric left ventricular hypertrophy. No regional wall motion abnormalities are present. Trace mitral valve regurgitation. Aortic valve sclerosis is present. Moderate aortic valve regurgitation. BP: 128 / 60 HR: 98 Rhythm: Sinus MEASUREMENTS (Male / Female) Normal Values Technical Quality:Fair 2D ECHO LV Diastolic Diameter PLAX 3.3 cm 4.2 - 5.9 / 3.9 - 5.3 cm LV Systolic Diameter PLAX 2.3 cm IVS Diastolic Thickness 1.3 cm 0.6 - 1.0 / 0.6 - 0.9 cm LVPW Diastolic Thickness 1.3 cm 0.6 - 1.0 / 0.6 - 0.9 cm LV Relative Wall Thickness 0.8 RV Internal Dim ED PLAX 1.9 cm LVOT Diameter 1.6 cm LA Systolic Diameter LX 2.8 cm 3.0 - 4.0 / 2.7 - 3.8 cm M-MODE Aortic Root Diameter MM 2.9 cm LA Systolic Diameter MM 2.7 cm LA Ao Ratio MM 0.9 AV Cusp Separation MM 1.9 cm DOPPLER AV Peak Velocity 159.0 cm/s AV Peak Gradient 10.1 mmHg AI Peak Velocity 407.5 cm/s AI Peak Gradient 66.4 mmHg AI Pressure Half Time 470.5 ms LVOT Peak Velocity 129.0 cm/s LVOT Peak Gradient 6.7 mmHg AV Area Cont Eq pk 1.5 cm MV Area PHT 4.8 cm Mitral E Point Velocity 97.7 cm/s Mitral A Point Velocity 117.0 cm/s Mitral E to A Ratio 0.8 LV E' Lateral Velocity 7.6 cm/s Mitral E to LV E' Lateral Ratio 12.9 LV E' Septal Velocity 5.9 cm/s Mitral E to LV E' Septal Ratio 16.4 TR Peak Velocity 224.0 cm/s TR Peak Gradient 20.1 mmHg Right Atrial Pressure 10.0 mmHg Pulmonary Artery Systolic Pressu 30.1 mmHg Right Ventricular Systolic Press 30.1 mmHg PV Peak Velocity 99.1 cm/s PV Peak Gradient 3.9 mmHg FINDINGS LEFT VENTRICLE The left ventricular systolic function is normal with an estimated ejection fraction in the range of 60-65%. Normal left ventricular size. Mild concentric left ventricular hypertrophy. No regional wall motion abnormalities are present. RIGHT VENTRICLE Normal right ventricular size and systolic function. LEFT ATRIUM The left atrial size is normal. RIGHT ATRIUM The right atrial size is normal. ATRIAL SEPTUM Normal atrial septal thickness without atrial level shunting by limited color doppler interrogation. AORTA The aortic root and proximal ascending aorta are normal in size on limited imaging. MITRAL VALVE Structurally normal mitral valve. Trace mitral valve regurgitation. AORTIC VALVE Trileaflet aortic valve. Aortic valve sclerosis is present. Moderate aortic valve regurgitation. TRICUSPID VALVE Structurally normal tricuspid valve. No tricuspid valve stenosis or regurgitation. PULMONARY VALVE No pulmonary valve regurgitation or stenosis. VESSELS The inferior vena cava is normal in size. PERICARDIUM No pericardial effusion. Mariela Hanson MD, FACC (Electronically Signed) Final Date:03 May 2017 20:12
[2017-05-04] VITALS (13 sets, daily range): BP systolic 140–171; BP diastolic 70–91; PULSE 56–92; RESP 14–24; TEMP 98.2–98.6; O2SAT 96–100
[2017-05-04] MEDS: ACETAMINOPHEN 325 MG TAB PO PRN ×4 (04:34→23:06)
--- NOTE | 2017-05-04 04:37 | RADRPT ---
EXAM DATE/TIME: 05/04/2017 04:08 [place] COMPARISON: CT BRAIN W/O CONTRAST, May 02, 2017, 21:25. INDICATIONS : Follow up subarachnoid hemorrhage. RADIATION DOSE: 56.35 CTDIvol (mGy) MEDICAL HISTORY : Hypertension. Diabetes mellitus type 2. SURGICAL HISTORY : None. ENCOUNTER: Subsequent ACUITY: 2 days PAIN SCALE: 0/10 LOCATION: cranial TECHNIQUE: Multiple contiguous axial images were obtained of the head. Using automated exposure control and adj ustment of the mA and/or kV according to patient size, radiation dose was kept as low as reasonably a chievable to obtain optimal diagnostic quality images. DICOM format image data is available electro nically for review and comparison. FINDINGS: CEREBRUM: The ventricles and cortical sulci are widened. There is a focal are of hemorrhage at the left posteri or basal ganglia and posterior internal capsule region. The previously seen subarachnoid hemorrhage i s much less prominent. Minimal areas of subarachnoid hemorrhage are seen at the superior right fronta l lobe. No evidence of midline shift, mass lesion or acute infarction. There is decreased density in the periventricular white matter. No extra-axial fluid collections are seen. POSTERIOR FOSSA: The cerebellum and brainstem are intact. The 4th ventricle is midline. The cerebellopontine angle i s unremarkable. EXTRACRANIAL: The visualized portion of the orbits is intact. There is right maxillary sinus disease. SKULL: The calvaria is intact. No evidence of skull fracture. CONCLUSION: 1. Persistent small focal hemorrhage at the posterior left basal ganglia and posterior limb of the in ternal capsule. 2. Small area of subarachnoid hemorrhage seen at the medial right frontal lobe. The other areas of martinez barachnoid hemorrhage have evolved. 3. Age-related atrophy and suspected small vessel ischemic change in the white matter. 4. Right maxillary sinus disease. Tenzin Marquez MD on May 04, 2017 at 4:31 Board Certified Radiologist. This report was verified electronically.
[2017-05-04] MEDS: CEPHALEXIN MONOHYDRATE 250 MG CAP PO SCH ×4 (05:11→23:05)
[2017-05-04] MEDS: NS + KCL 20 MEQ INJ 1,000 ML IV SCH ×2 (06:27→11:26)
[2017-05-04 08:18] LABS: AUTOMATED NEUTROPHIL # 6.1 TH/MM3 (1.8-7.7); BASOPHIL # 0.1 TH/MM3 (0-0.2); BASOPHIL % 0.9 % (0.0-2.0); EOSINOPHIL # 0.2 TH/MM3 (0-0.4); EOSINOPHIL % 1.8 % (0.0-4.0); HEMATOCRIT 36.2 % (35.0-46.0); HEMOGLOBIN 12.6 GM/DL (11.6-15.3); LYMPHOCYTE # 1.9 TH/MM3 (1.0-4.8); MEAN CELL VOLUME 85.8 FL (80.0-100.0); MEAN CORPUSCULAR HEMOGLOBIN 29.9 PG (27.0-34.0); MEAN CORPUSCULAR HGB CONC 34.9 % (32.0-36.0); MEAN PLATELET VOLUME 7.5 FL (7.0-11.0); MONOCYTE # 0.5 TH/MM3 (0-0.9); NEUT % 69.3 % (16.0-70.0); PLATELET COUNT 257 TH/MM3 (150-450); RED BLOOD COUNT 4.22 MIL/MM3 (4.00-5.30); RED CELL DISTRIBUTION WIDTH 13.7 % (11.6-17.2); WHITE BLOOD COUNT 8.8 TH/MM3 (4.0-11.0)
[2017-05-04 08:48] LABS: BICARBONATE 25.5 MEQ/L (21.0-32.0); CALCIUM 8.2 MG/DL (8.5-10.1); CREATININE 0.49 MG/DL (0.50-1.00); MAGNESIUM 1.8 MG/DL (1.5-2.5)
[2017-05-04] MEDS ORDERED: PRAVASTATIN SOD 10 MG TAB PO SCH (09:00)
--- NOTE | 2017-05-04 09:06 | HHI.NSPN ---
(Dewayne Jacques) History Chief Complaint: No complaints. TBI. (Dewayne Jacques) Interval History The patient is a 72 year-old female who presented to [facility] emergency room after a syncopal episode, struck her head with positive loss of consciousness. She was found to have a bihemispheric frontoparietal area convexity, traumatic subarachnoid hemorrhage along with basal ganglia calcifications left more than right. No mass effect or midline shift was noted. Initially she had complaints of headache and nausea but these have resolved overnight. She was transferred to [facility] this morning for further management. She denies any neck or back pain, numbness or paresthesias. She relates that she was in a wedding last evening and had a few glasses of wine and subsequently another alcoholic beverage, and was outside the bathroom at a restaurant when she passed out, fell and struck her head. At this point she denies any dizziness, lightheadedness and has ambulated a few steps with the physical therapist. She relates that the nausea has resolved. She has a mild headache. No numbness or paresthesias in the upper or lower extremities. CT of the cervical spine does not reveal any fractures. She does have orbital floor and nasal bone fracture, nondisplaced. 05/04/17: Pt awake and alert. Sitting up in chair eating breakfast. No headache. No n/v. No paresthesias or weakness. (Dewayne Jacques) Review of Systems General: Negative for: fever, chills, insomnia Respiratory: Negative for: shortness of breath, cough, sputum Cardiovascular: Negative for: chest pain Gastrointestinal: Negative for: nausea, vomitting, diarrhea, constipation ( Dewayne Jacques) Exam Results Vital Signs Date Time Temp Pulse Resp B/P (MAP) Pulse Ox O2 Delivery O2 Flow Rate FiO2 05/04/17 06:00 64 05/04/17 05:34 17 05/04/17 04:00 98.2 163/79 (107) 99 05/03/17 19:37 21 05/03/17 19:00 Room Air Intake and Output 05/04/17 05/04/17 05/05/17 08:00 16:00 00:00 Intake Total 269 ml Balance 269 ml (Dewayne Jacques) Physical Examination General: Pt sitting up in chair eating breakfast. Resp: CTA bilaterally Heart: NSR no murmurs Abd: Soft positive bs Skin: right periorbital ecchymosis. Muscle: Moves all 4 extremities with good strength. Neuro: Pt awake and alert. Follows commands well. Speech clear and appropriate. Pupils 3mm bilaterally reactive bilaterally. (Dewayne Jacques) Lab, Micro, Other Results Last Impressions Head CT 05/04/17 0600 Signed Impressions: Service Date/Time: Thursday, May 04, 2017 04:08 - CONCLUSION: 1. Persistent small focal hemorrhage at the posterior left basal ganglia and posterior limb of the internal capsule. 2. Small area of subarachnoid hemorrhage seen at the medial right frontal lobe. The other areas of subarachnoid hemorrhage have evolved. 3. Age-related atrophy and suspected small vessel ischemic change in the white matter. 4. Right maxillary sinus disease. Tenzin Marquez MD Maxillofacial CT 05/02/17 0000 Signed Impressions: Service Date/Time: Tuesday, May 02, 2017 21:25 - CONCLUSION: 1. Acute right nasal bone fracture and right orbital floor fracture without entrapment of the inferior rectus muscle. Juanjose Harris Jr., MD Cervical Spine CT 05/02/17 0000 Signed Impressions: Service Date/Time: Tuesday, May 02, 2017 21:25 - CONCLUSION: 1. No fracture or dislocation. 2. Degenerative changes. Juanjose Harris Jr., MD Laboratory Tests Test 05/03/17 09:40 05/04/17 06:21 Phosphorus Level 3.1 MG/DL 3.0 MG/DL Magnesium Level 1.8 MG/DL 1.8 MG/DL Troponin I LESS THAN 0.02 NG/ML Triglycerides Level 82 MG/DL Cholesterol Level 182 MG/DL LDL Cholesterol 98 MG/DL HDL Cholesterol 67.2 MG/DL Cholesterol/HDL Ratio 2.70 RATIO Lipase 88 U/L Thyroid Stimulating Hormone 3rd Gen 0.960 uIU/ML White Blood Count 8.8 TH/MM3 Red Blood Count 4.22 MIL/MM3 Hemoglobin 12.6 GM/DL Hematocrit 36.2 % Mean Corpuscular Volume 85.8 FL Mean Corpuscular Hemoglobin 29.9 PG Mean Corpuscular Hemoglobin Concent 34.9 % Red Cell Distribution Width 13.7 % Platelet Count 257 TH/MM3 Mean Platelet Volume 7.5 FL Neutrophils (%) (Auto) 69.3 % Lymphocytes (%) (Auto) 22.0 % Monocytes (%) (Auto) 6.0 % Eosinophils (%) (Auto) 1.8 % Basophils (%) (Auto) 0.9 % Neutrophils # (Auto) 6.1 TH/MM3 Lymphocytes # (Auto) 1.9 TH/MM3 Monocytes # (Auto) 0.5 TH/MM3 Eosinophils # (Auto) 0.2 TH/MM3 Basophils # (Auto) 0.1 TH/MM3 CBC Comment DIFF FINAL Differential Comment Blood Urea Nitrogen 6 MG/DL Creatinine 0.49 MG/DL Random Glucose 164 MG/DL Calcium Level 8.2 MG/DL Sodium Level 144 MEQ/L Potassium Level 3.7 MEQ/L Chloride Level 110 MEQ/L Carbon Dioxide Level 25.5 MEQ/L Anion Gap 9 MEQ/L Estimat Glomerular Filtration Rate 124 ML/MIN 05/04/17 05/04/17 05/05/17 15:00 23:00 07:00 # Voids 1 (Dewayne Jacques) Medical Decision Making Impression and Plan A: 1. 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 2. Syncopal episode. 3. Nbu-nzsguen-[id number] diabetes mellitus. 4. Hypertension which is well regulated. PLAN Continue to monitor neuro exam Continue with syncope work up Continue with rehab efforts. Increasing activity. Discussed plan with RN. (Dewayne Jacques) Attending Statement The exam, history, and the medical decision-making described in the above note were completed with the assistance of the mid-level provider. I reviewed and agree with the findings presented. I attest that I had a [id number] encounter with the patient on the same day, and personally performed and documented my assessment and findings in the medical record. Follow-up CT scan with a resolving subarachnoid hemorrhage and left basal ganglia chronic calcification. She relates continued improvement of her symptoms and is ambulating independently. Hypertension not well-regulated and split and drum room supervisor will address this. Updated daughter at bedside. (Pb Gifford MD) Dewayne Jacques May 04, 2017 09:06 Pb Gifford MD May 04, 2017 16:59
[2017-05-04] MEDS: THIAMINE HCL 100 MG TAB PO SCH (09:50)
[2017-05-04] MEDS: MULTIVITAMIN TAB PO SCH (09:51)
[2017-05-04] MEDS: LISINOPRIL 10 MG TAB PO SCH ×2 (09:51→20:43)
[2017-05-04] MEDS: SODIUM CHLORIDE 0.9% FLUSH 10 ML FLUSH IV FLUSH SCH ×2 (09:51→20:42)
[2017-05-04] MEDS: FOLIC ACID 1 MG TAB PO SCH (09:51)
[2017-05-04] MEDS: FAMOTIDINE 20 MG TAB PO SCH ×2 (09:51→20:42)
[2017-05-04] MEDS: DOCUSATE SODIUM 50 MG/SENNA 8.6 MG TAB PO SCH ×2 (09:52→20:42)
[2017-05-04] MEDS: INSULIN ASPART SUPPLEMENTAL SCALE SQ SCH ×4 (10:20→20:44)
--- NOTE | 2017-05-04 10:30 | EKG ---
Date Performed: 05/03/2017 Time Performed: 13:07:29 PTAGE: 72 years EKG: Sinus rhythm LOW QRS VOLTAGE IN PRECORDIAL LEADS VOLTAGE CRITERIA FOR LVH ABNORMAL ECG PREVIOUS TRACING : 05/03/2017 09.49 DOCTOR: Markell Tan Interpretating Date/Time 05/04/2017 10:29:25
[2017-05-04] MEDS: LABETALOL HCL 100 MG/20 ML VIAL IV PUSH PRN ×3 (11:15→20:44)
[2017-05-04] MEDS ORDERED: hydrALAZINE HCL 20 MG/ML VIAL IV PUSH PRN ×3 (12:45→20:45)
[2017-05-04] MEDS ORDERED: fentaNYL DRIP 250 ML IV PRN (12:45)
[2017-05-04] MEDS ORDERED: amLODIPine BESYLATE 5 MG TAB PO ONE (13:15)
[2017-05-04] MEDS ORDERED: ENALAPRILAT 2.5 MG/2 ML VIAL IV PUSH PRN (13:15)
--- NOTE | 2017-05-04 19:59 | HHI.CCPN ---
Subjective Remarks/Hospital Course 72-year-old female with past medical history of hypertension, diabetes, hyperlipidemia, obesity who presents to [facility] emergency department after LOC. She states she had attended a wedding and had eaten and drank one alcoholic beverage. She became very nauseous and her assisted her to going to the bathroom. She then had a syncopal event. She states she struck her face on the floor. She denies chest pain, shortness of breath, palpitations, diaphoresis, headache, neck pain, loss of bowel or bladder function, tongue biting. There was no seizure activity noted. She denies prior history of syncope. She denies prior cardiac history and states she has never had a cardiac workup in the past. No family history of sudden cardiac . CT brain demonstrates scattered subarachnoid hemorrhage, bifrontal and biparietal. She states that she has some tenderness around her right eye where she has periorbital ecchymoses but otherwise denies any pain or symptoms. Denies diplopia or visual changes. CT C-spine was also performed and was negative for acute fracture/subluxation. CT maxillofacial shows fracture of nasal bone and the floor of the right orbital floor without radiographic (or clinical) evidence of entrapment. She has not been on antiplatelet or anticoagulant. 05/03: Reevaluated this afternoon. Remains on room air and clinically stable.. On room air. On ADA diet. Subjective 05/04: Blood pressure remains elevated. Right eye is swelling/edema much improved. Tolerating diet. No new neurological findings. Objective Vital Signs Date Time Temp Pulse Resp B/P (MAP) Pulse Ox O2 Delivery O2 Flow Rate FiO2 05/04/17 19:42 96 Room Air 05/04/17 18:00 86 05/04/17 16:00 98.6 14 163/79 (107) 05/04/17 08:32 21 Intake and Output 05/04/17 05/04/17 05/05/17 08:00 16:00 00:00 Intake Total 269 ml 440 ml 837 ml Balance 269 ml 440 ml 837 ml Result Diagram: 05/04/1762005/04/17 06 Imaging Last Impressions Head CT 05/04/17 0600 Signed Impressions: Service Date/Time: Thursday, May 04, 2017 04:08 - CONCLUSION: 1. Persistent small focal hemorrhage at the posterior left basal ganglia and posterior limb of the internal capsule. 2. Small area of subarachnoid hemorrhage seen at the medial right frontal lobe. The other areas of subarachnoid hemorrhage have evolved. 3. Age-related atrophy and suspected small vessel ischemic change in the white matter. 4. Right maxillary sinus disease. Tenzin Marquez MD Maxillofacial CT 05/02/17 0000 Signed Impressions: Service Date/Time: Tuesday, May 02, 2017 21:25 - CONCLUSION: 1. Acute right nasal bone fracture and right orbital floor fracture without entrapment of the inferior rectus muscle. Juanjose Harris Jr., MD Cervical Spine CT 05/02/17 0000 Signed Impressions: Service Date/Time: Tuesday, May 02, 2017 21:25 - CONCLUSION: 1. No fracture or dislocation. 2. Degenerative changes. Juanjose Harris Jr., MD Objective Remarks GENERAL: 72-year-old female resting in bed in no acute distress SKIN: Warm and dry. Right periorbital ecchymosis without crepitus HEAD: Normocephalic. EYES: Pupils equal and round, 3 mm reactive to 2 mm bilaterally.. No scleral icterus. Mild right conjunctival injection. Extraocular movements are full including upward gaze with no evidence of inferior rectus entrapment. ENT: No nasal bleeding or discharge. Mucous membranes pink and moist. Oropharynx without erythema NECK: Trachea midline. No JVD. CARDIOVASCULAR: RRR. S1, S2 no S4.. 2/6 systolic murmur LLSB RESPIRATORY: No acute auscultation without wheezes rales or rhonchi GASTROINTESTINAL: Abdomen soft, non-tender, nondistended. Bowel sounds present. MUSCULOSKELETAL: Extremities without noted in peripheral edema. No obvious deformities. NEUROLOGICAL: Awake and alert. No obvious cranial nerve deficits. Pupils reactive as above. Extra ocular movements intact. No pronator drift. Five out of 5 muscle strength in the arms and legs. Normal speech. Sensation intact. Gait was not assessed. A/P Assessment and Plan NEURO/PSYCH: Syncope Right frontal/parietal and left parietal subarachnoid hemorrhage - traumatic EtOH use Right nondisplaced Nasal fracture R inferior orbit for fx - No evidence of entrapment. Involving the inferior rectus muscle Dr. Gifford/neurosurgery following. Plan for repeat CT brain in a.m. 05/04 Neurocheck in [facility]. EtOH - 29. UDS (-) Monitor for signs of seizure. Acetaminophen 650 mg by mouth every 4 hours when necessary pain 1-3 Hydrocodone/acetaminophen 5/325 one tablet every 4 hours when necessary pain 4 through 10 Prophylactically start on thiamine 100 mg daily, folate 1 mg daily and multivitamin 1 tablet daily Ophtho followup outpatient. Monitor for diplopia/exophthalmos Antibiotics as below. No indications for steroids at this time No indication for seizure prophylaxis RESP: Nasal cannula if needed to maintain saturations greater than equal to 92% Incentive spirometry while awake As needed albuterol every 2 hours. Dyspnea No chest x-ray done during this hospitalization. Not currently indicate CV: History of Hypertension History of Hyperlipidemia/high HDL Syncope episode Will increase lisinopril 10 mg by mouth daily/home medication twice daily and add amlodipine 5 mg daily As needed enalapril 1.25 mg every 6 hours as needed and labetalol 10 mill grams IV 1 hour as needed maintain systolic blood pressure less than 150. Ideally less than 140 Continue pravastatin 10 mg by mouth (MAR said daily but pt actually takes 3x/ week so written for qod). HDL elevated at 67. Otherwise within normal limits. Admission EKG normal sinus rhythm rate 93, normal qrs 75 mm, QtC nl, no st deviation. Monitor telemetry. Troponin negative 3 Completed 2-D echo results pending GI: Heart healthy 1800-calorie ADA diet Famotidine 20 mg by mouth twice a day for GI prophylaxis Docusate sodium/senna 1 tablet twice a day for bowel regimen FEN/RENAL: Hypokalemia Replace as clinically indicated. Monitor BMP. Discontinue IV fluids ID: No leukocytosis or fever. Monitor for signs and symptoms of infection. Cephalexin 250 milligrams po q6 for right orbital floor wall fracture 10 days to HEME: Hemoglobin normal. No reported GI bleeding symptoms. Follow-up CBC tomorrow. ENDO: Diabetes mellitus Hold metformin 500 mg twice a day/home medication. Novulog Insulin low dose sliding scale ac/hs 0.96 - TSH PROPH: SCDs for DVT prophylaxis. Pharmacologic DVT prophylaxis contraindicated in setting of subarachnoid hemorrhage. Famotidine for stress ulcer prophylaxis. ACCESS: PIV providing adequate access. Level II follow-up. Patient is stable from critical care medicine standpoint. We'll assign care to hospitalist in a.m. 05/05. Eder Puentes MD May 04, 2017 19:59
[2017-05-04] MEDS ORDERED: cloNIDine HCL 0.1 MG TAB PO PRN (20:45)
[2017-05-04] MEDS: ALPRAZolam 0.25 MG TAB PO PRN (21:10)
[2017-05-05] VITALS (9 sets, daily range): BP systolic 109–174; BP diastolic 61–101; PULSE 70–84; RESP 17–25; TEMP 97.8–98.4; O2SAT 96–99
[2017-05-05] MEDS: CHLORHEXIDINE GLUCONATE 2 % 1 PACK (2 CLOTHS) TOP SCH (00:07)
[2017-05-05] MEDS: ACETAMINOPHEN 325 MG TAB PO PRN ×2 (05:03→09:18)
[2017-05-05] MEDS: CEPHALEXIN MONOHYDRATE 250 MG CAP PO SCH ×2 (05:03→13:26)
[2017-05-05 05:23] LABS: HEMATOCRIT 39.2 % (35.0-46.0); HEMOGLOBIN 13.9 GM/DL (11.6-15.3); MEAN CELL VOLUME 84.2 FL (80.0-100.0); MEAN CORPUSCULAR HEMOGLOBIN 29.9 PG (27.0-34.0); MEAN CORPUSCULAR HGB CONC 35.6 % (32.0-36.0); MEAN PLATELET VOLUME 7.3 FL (7.0-11.0); PLATELET COUNT 305 TH/MM3 (150-450); RED BLOOD COUNT 4.65 MIL/MM3 (4.00-5.30); RED CELL DISTRIBUTION WIDTH 13.5 % (11.6-17.2); WHITE BLOOD COUNT 10.8 TH/MM3 (4.0-11.0)
[2017-05-05 05:47] LABS: BICARBONATE 26.8 MEQ/L (21.0-32.0); CREATININE 0.49 MG/DL (0.50-1.00)
[2017-05-05] MEDS ORDERED: amLODIPine BESYLATE 5 MG TAB PO SCH (09:00)
--- NOTE | 2017-05-05 09:01 | HHI.NSPN ---
(Dewayne Jacques) History Chief Complaint: No complaints. TBI. (Dewayne Jacques) Interval History The patient is a 72 year-old female who presented to [facility] emergency room after a syncopal episode, struck her head with positive loss of consciousness. She was found to have a bihemispheric frontoparietal area convexity, traumatic subarachnoid hemorrhage along with basal ganglia calcifications left more than right. No mass effect or midline shift was noted. Initially she had complaints of headache and nausea but these have resolved overnight. She was transferred to [facility] this morning for further management. She denies any neck or back pain, numbness or paresthesias. She relates that she was in a wedding last evening and had a few glasses of wine and subsequently another alcoholic beverage, and was outside the bathroom at a restaurant when she passed out, fell and struck her head. At this point she denies any dizziness, lightheadedness and has ambulated a few steps with the physical therapist. She relates that the nausea has resolved. She has a mild headache. No numbness or paresthesias in the upper or lower extremities. CT of the cervical spine does not reveal any fractures. She does have orbital floor and nasal bone fracture, nondisplaced. 05/04/17: Pt awake and alert. Sitting up in chair eating breakfast. No headache. No n/v. No paresthesias or weakness. 05/05/17: Pt awake and alert. Denies headaches. Mild right facial discomfort with tingling from edema which is decreasing. No n/v. BP better controlled today. (Dewayne Jacques) Review of Systems General: Negative for: fever, chills, insomnia Respiratory: Negative for: shortness of breath, cough, sputum Cardiovascular: Negative for: chest pain Gastrointestinal: Negative for: nausea, vomitting, diarrhea, constipation ( Dewayne Jacques) Exam Results Vital Signs Date Time Temp Pulse Resp B/P (MAP) Pulse Ox O2 Delivery O2 Flow Rate FiO2 05/05/17 08:20 97 21 05/05/17 07:27 Room Air 05/05/17 06:00 70 05/05/17 04:00 98.0 17 112/62 (79) Intake and Output 05/05/17 05/05/17 05/06/17 08:00 16:00 00:00 Intake Total 240 ml Balance 240 ml (Dewayne Jacques) Physical Examination General: Pt resting in bed in NAD. Resp: CTA bilaterally Heart: NSR no murmurs Abd: Soft positive bs Skin: right periorbital ecchymosis. Muscle: Moves all 4 extremities with good strength. Neuro: Pt awake and alert. Follows commands well. Speech clear and appropriate. Pupils 3mm bilaterally reactive bilaterally. (Dewayne Jacques) Lab, Micro, Other Results Last Impressions Head CT 05/04/17 0600 Signed Impressions: Service Date/Time: Thursday, May 04, 2017 04:08 - CONCLUSION: 1. Persistent small focal hemorrhage at the posterior left basal ganglia and posterior limb of the internal capsule. 2. Small area of subarachnoid hemorrhage seen at the medial right frontal lobe. The other areas of subarachnoid hemorrhage have evolved. 3. Age-related atrophy and suspected small vessel ischemic change in the white matter. 4. Right maxillary sinus disease. Tenzin Marquez MD Maxillofacial CT 05/02/17 0000 Signed Impressions: Service Date/Time: Tuesday, May 02, 2017 21:25 - CONCLUSION: 1. Acute right nasal bone fracture and right orbital floor fracture without entrapment of the inferior rectus muscle. Juanjose Harris Jr., MD Cervical Spine CT 05/02/17 0000 Signed Impressions: Service Date/Time: Tuesday, May 02, 2017 21:25 - CONCLUSION: 1. No fracture or dislocation. 2. Degenerative changes. Juanjose Harris Jr., MD Laboratory Tests Test 05/05/17 04:30 White Blood Count 10.8 TH/MM3 Red Blood Count 4.65 MIL/MM3 Hemoglobin 13.9 GM/DL Hematocrit 39.2 % Mean Corpuscular Volume 84.2 FL Mean Corpuscular Hemoglobin 29.9 PG Mean Corpuscular Hemoglobin Concent 35.6 % Red Cell Distribution Width 13.5 % Platelet Count 305 TH/MM3 Mean Platelet Volume 7.3 FL Blood Urea Nitrogen 7 MG/DL Creatinine 0.49 MG/DL Random Glucose 174 MG/DL Calcium Level 9.0 MG/DL Sodium Level 141 MEQ/L Potassium Level 3.4 MEQ/L Chloride Level 106 MEQ/L Carbon Dioxide Level 26.8 MEQ/L Anion Gap 8 MEQ/L Estimat Glomerular Filtration Rate 124 ML/MIN (Dewayne Jacques) Medical Decision Making Impression and Plan A: 1. 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 2. Syncopal episode. 3. [id number] diabetes mellitus. 4. Hypertension which is well regulated. PLAN Continue to monitor neuro exam Continue with bp control. Better today. Continue with rehab efforts. Increasing activity. Discussed plan with RN. (Dewayne Jacques) Attending Statement The exam, history, and the medical decision-making described in the above note were completed with the assistance of the mid-level provider. I reviewed and agree with the findings presented. I attest that I had a [id number] encounter with the patient on the same day, and personally performed and documented my assessment and findings in the medical record. Stable neurologic examination and no particular complaints. She denies ambulating independently and hypertension well-regulated. Cleared for discharge from neurosurgical standpoint and will follow-up with her primary care physician. (Pb Gifford MD) Dewayne Jacques May 05, 2017 09:01 Pb Gifford MD May 05, 2017 16:33
[2017-05-05] MEDS: DOCUSATE SODIUM 50 MG/SENNA 8.6 MG TAB PO SCH (09:19)
[2017-05-05] MEDS: THIAMINE HCL 100 MG TAB PO SCH (09:19)
[2017-05-05] MEDS: MULTIVITAMIN TAB PO SCH (09:19)
[2017-05-05] MEDS: LISINOPRIL 10 MG TAB PO SCH (09:20)
[2017-05-05] MEDS: ALPRAZolam 0.25 MG TAB PO PRN (09:20)
[2017-05-05] MEDS: INSULIN ASPART SUPPLEMENTAL SCALE SQ SCH ×2 (09:22→13:25)
[2017-05-05] MEDS: FAMOTIDINE 20 MG TAB PO SCH (09:23)
[2017-05-05] MEDS: SODIUM CHLORIDE 0.9% FLUSH 10 ML FLUSH IV FLUSH SCH (09:23)
[2017-05-05] MEDS: FOLIC ACID 1 MG TAB PO SCH (09:23)
[2017-05-05] MEDS ORDERED: AMLO5 PO (13:45)
--- NOTE | 2017-05-05 13:49 | HHI.DS ---
Discharge Summary Admission Date May 02, 2017 at 22:34 Discharge Date: May 05, 2017 Admitting Diagnosis Subarachnoid hemorrhage, Syncope (1) Subarachnoid hemorrhage ICD Code: I60.9 - Nontraumatic subarachnoid hemorrhage, unspecified Diagnosis: Principal Status: Acute (2) Syncope and collapse ICD Code: R55 - Syncope and collapse Diagnosis: Principal Status: Acute Procedures None Brief History 72-year-old female with past medical history of hypertension, diabetes, hyperlipidemia, obesity who presents to [facility] emergency department after LOC. She states she had attended a wedding and had eaten and drank one alcoholic beverage. She became very nauseous and her assisted her to going to the bathroom. She then had a syncopal event. She states she struck her face on the floor. She denies chest pain, shortness of breath, palpitations, diaphoresis, headache, neck pain, loss of bowel or bladder function, tongue biting. There was no seizure activity noted. She denies prior history of syncope. She denies prior cardiac history and states she has never had a cardiac workup in the past. No family history of sudden cardiac . CT brain demonstrates scattered subarachnoid hemorrhage, bifrontal and biparietal. She states that she has some tenderness around her right eye where she has periorbital ecchymoses but otherwise denies any pain or symptoms. Denies diplopia or visual changes. CT C-spine was also performed and was negative for acute fracture/subluxation. CT maxillofacial shows fracture of nasal bone and the floor of the right orbital floor without radiographic (or clinical) evidence of entrapment. She has not been on antiplatelet or anticoagulant. CBC/BMP: 05/05/17 0430 05/05/17 0430 Significant Findings Laboratory Tests Test 05/02/17 21:00 05/03/17 01:00 05/03/17 04:04 05/03/17 09:00 Activated Partial Thromboplast Time 18.6 SEC (24.3-30.1) Random Glucose 220 MG/DL (74-106) Potassium Level 3.4 MEQ/L (3.5-5.1) Estimat Glomerular Filtration Rate 74 ML/MIN (>89) Troponin I LESS THAN 0.02 NG/ML LESS THAN 0.02 NG/ML Ethyl Alcohol Level 29 MG/DL (0-5) Test 05/03/17 09:40 05/04/17 06:21 05/05/17 04:30 Troponin I LESS THAN 0.02 NG/ML HDL Cholesterol 67.2 MG/DL (40.0-60.0) Blood Urea Nitrogen 6 MG/DL (7-18) Creatinine 0.49 MG/DL (0.50-1.00) 0.49 MG/DL (0.50-1.00) Random Glucose 164 MG/DL (74-106) 174 MG/DL (74-106) Calcium Level 8.2 MG/DL (8.5-10.1) Chloride Level 110 MEQ/L (98-107) Potassium Level 3.4 MEQ/L (3.5-5.1) Imaging Last Impressions Head CT 05/04/17 0600 Signed Impressions: Service Date/Time: Thursday, May 04, 2017 04:08 - CONCLUSION: 1. Persistent small focal hemorrhage at the posterior left basal ganglia and posterior limb of the internal capsule. 2. Small area of subarachnoid hemorrhage seen at the medial right frontal lobe. The other areas of subarachnoid hemorrhage have evolved. 3. Age-related atrophy and suspected small vessel ischemic change in the white matter. 4. Right maxillary sinus disease. Tenzin Marquez MD Maxillofacial CT 05/02/17 0000 Signed Impressions: Service Date/Time: Tuesday, May 02, 2017 21:25 - CONCLUSION: 1. Acute right nasal bone fracture and right orbital floor fracture without entrapment of the inferior rectus muscle. Juanjose Harris Jr., MD Cervical Spine CT 05/02/17 0000 Signed Impressions: Service Date/Time: Tuesday, May 02, 2017 21:25 - CONCLUSION: 1. No fracture or dislocation. 2. Degenerative changes. Juanjose Harris Jr., MD PE at Discharge GENERAL: 72-year-old female resting in bed in no acute distress SKIN: Warm and dry. Right periorbital ecchymosis without crepitus HEAD: Normocephalic. EYES: Pupils equal and round, 3 mm reactive to 2 mm bilaterally.. No scleral icterus. Mild right conjunctival injection. Extraocular movements are full including upward gaze with no evidence of inferior rectus entrapment. ENT: No nasal bleeding or discharge. Mucous membranes pink and moist. Oropharynx without erythema NECK: Trachea midline. No JVD. CARDIOVASCULAR: RRR. S1, S2 no S4.. 2/6 systolic murmur LLSB RESPIRATORY: No acute auscultation without wheezes rales or rhonchi GASTROINTESTINAL: Abdomen soft, non-tender, nondistended. Bowel sounds present. MUSCULOSKELETAL: Extremities without noted in peripheral edema. No obvious deformities. NEUROLOGICAL: Awake and alert. No obvious cranial nerve deficits. Pupils reactive as above. Extra ocular movements intact. No pronator drift. Five out of 5 muscle strength in the arms and legs. Normal speech. Sensation intact. Gait was not assessed. Transfer Summary NEURO/PSYCH: Syncope Right frontal/parietal and left parietal subarachnoid hemorrhage - traumatic EtOH use Right nondisplaced Nasal fracture R inferior orbit for fx - No evidence of entrapment. Involving the inferior rectus muscle Dr. Gifford/neurosurgery following. Plan for repeat CT brain in a.m. 05/04 Neurocheck in [facility]. EtOH - 29. UDS (-) Monitor for signs of seizure. Acetaminophen 650 mg by mouth every 4 hours when necessary pain 1-3 Hydrocodone/acetaminophen 5/325 one tablet every 4 hours when necessary pain 4 through 10 Prophylactically start on thiamine 100 mg daily, folate 1 mg daily and multivitamin 1 tablet daily Ophtho followup outpatient. Monitor for diplopia/exophthalmos Antibiotics as below. No indications for steroids at this time No indication for seizure prophylaxis RESP: Nasal cannula if needed to maintain saturations greater than equal to 92% Incentive spirometry while awake As needed albuterol every 2 hours. Dyspnea No chest x-ray done during this hospitalization. Not currently indicate CV: History of Hypertension History of Hyperlipidemia/high HDL Syncope episode Will increase lisinopril 10 mg by mouth daily/home medication twice daily and add amlodipine 5 mg daily As needed enalapril 1.25 mg every 6 hours as needed and labetalol 10 mill grams IV 1 hour as needed maintain systolic blood pressure less than 150. Ideally less than 140 Continue pravastatin 10 mg by mouth (MAR said daily but pt actually takes 3x/ week so written for qod). HDL elevated at 67. Otherwise within normal limits. Admission EKG normal sinus rhythm rate 93, normal qrs 75 mm, QtC nl, no st deviation. Monitor telemetry. Troponin negative 3 Completed 2-D echo results pending GI: Heart healthy 1800-calorie ADA diet Famotidine 20 mg by mouth twice a day for GI prophylaxis Docusate sodium/senna 1 tablet twice a day for bowel regimen FEN/RENAL: Hypokalemia Replace as clinically indicated. Monitor BMP. Discontinue IV fluids ID: No leukocytosis or fever. Monitor for signs and symptoms of infection. Cephalexin 250 milligrams po q6 for right orbital floor wall fracture 10 days to HEME: Hemoglobin normal. No reported GI bleeding symptoms. Follow-up CBC tomorrow. ENDO: Diabetes mellitus Hold metformin 500 mg twice a day/home medication. Novulog Insulin low dose sliding scale ac/hs 0.96 - TSH PROPH: SCDs for DVT prophylaxis. Pharmacologic DVT prophylaxis contraindicated in setting of subarachnoid hemorrhage. Famotidine for stress ulcer prophylaxis. ACCESS: PIV providing adequate access. Okay to be discharged home per neurosurgery Follow-up with PCP in 1 week Follow-up with ophthalmology in one month Hospital Course 72-year-old female with past medical history of hypertension, diabetes, hyperlipidemia, obesity who presents to [facility] emergency department after LOC. She states she had attended a wedding and had eaten and drank one alcoholic beverage. She became very nauseous and her assisted her to going to the bathroom. She then had a syncopal event. She states she struck her face on the floor. She denies chest pain, shortness of breath, palpitations, diaphoresis, headache, neck pain, loss of bowel or bladder function, tongue biting. There was no seizure activity noted. She denies prior history of syncope. She denies prior cardiac history and states she has never had a cardiac workup in the past. No family history of sudden cardiac . CT brain demonstrates scattered subarachnoid hemorrhage, bifrontal and biparietal. She states that she has some tenderness around her right eye where she has periorbital ecchymoses but otherwise denies any pain or symptoms. Denies diplopia or visual changes. CT C-spine was also performed and was negative for acute fracture/subluxation. CT maxillofacial shows fracture of nasal bone and the floor of the right orbital floor without radiographic (or clinical) evidence of entrapment. She has not been on antiplatelet or anticoagulant. 05/03: Reevaluated this afternoon. Remains on room air and clinically stable.. On room air. On ADA diet. 05/04: Blood pressure remains elevated. Right eye is swelling/edema much improved. Tolerating diet. No new neurological findings. 05/05: No new changes. The systolic blood pressure much better control. Neurosurgery okay to discharge home today. Pt Condition on Discharge: Good Discharge Disposition: Discharge Home Discharge Instructions DIET: Follow Instructions for: As Tolerated, No Restrictions Activities you can perform: Regular-No Restrictions Eder Puentes MD May 05, 2017 13:48
== END 2017-05-05 15:43 | disposition home or self-care (01) | DRG 84 ==
LOC: PHED 20:47 → PHEDA 22:34 → N03A 05-03 00:17
PROVIDERS: ADMIT Emergency Medicine; ATTEND Emergency Medicine
DX: S06.6X9A Traumatic subarachnoid hemorrhage with loss of consciousness of unspecified duration, initial encounter (principal); E11.9 Type 2 diabetes mellitus without complications; I10 Essential (primary) hypertension; E78.5 Hyperlipidemia, unspecified; S02.2XXA Fracture of nasal bones, initial encounter for closed fracture; S02.31XA Fracture of orbital floor, right side, initial encounter for closed fracture; W18.30XA Fall on same level, unspecified, initial encounter; E87.6 Hypokalemia; R41.82 Altered mental status, unspecified; Z79.84 Long term (current) use of oral hypoglycemic drugs
CPT/HCPCS: 70450; 70486; 72125; 80048; 80053; 80061; 80307; 82948; 83690; 83735; 84100; 84443; 84484; 85025; 85027; 85610; 85730; 87641; 93005; 93306; 94150; 96374; J0360; J1815; J2405; J3475; J3480